=== PATIENT | female | born 1990 | race Caucasian/White ===

== ENCOUNTER → 2017-06-30 | Outpatient (CLI) | payer OTHER | END | disposition home or self-care (01) | LOC: C.LABSPEC 12:13 | PROVIDERS: ATTEND Obstetrics & Gynecology | DX: Z34.01 Encounter for supervision of normal first pregnancy, first trimester (principal) ==

== ENCOUNTER → 2017-07-03 | Outpatient (CLI) | payer OTHER ==
[2017-07-03 12:06] LABS: BASO % 0.3 %; BASO ABS # 0.02 K/uL (0-0.2); EOS % 0.7 %; EOS ABS # 0.05 K/uL (0-0.5); HEMATOCRIT 37.4 % (37-47); HEMOGLOBIN 12.6 g/dL (12.0-16.0); IG# 0.02 K/uL (0.00-0.02); LYMPH % 20.4 %; LYMPH ABS # 1.39 K/uL (1.2-3.4); MEAN CELL VOLUME 79.2 fL (80-100); MEAN CORPUSCULAR HEMOGLOBIN 26.7 pg (25-34); MEAN CORPUSCULAR HGB CONC 33.7 g/dl (32-36); MEAN PLATELET VOLUME 9.7 fL (7.4-10.4); MONO % 6.4 %; MONO ABS # 0.44 K/uL (0.11-0.59); NEUT % 71.9 %; NEUT ABS # 4.91 K/uL (1.4-6.5); PLATELET COUNT 316 K/uL (130-400); RED CELL DISTRIBUTION WIDTH CV 13.8 % (11.5-14.5); RED CELL DISTRIBUTION WIDTH SD 39.1 fL (36.4-46.3); WHITE BLOOD COUNT 6.83 K/uL (4.8-10.8)
== END | disposition home or self-care (01) ==
LOC: C.LAB1850 10:31
PROVIDERS: ATTEND Obstetrics & Gynecology
DX: Z34.01 Encounter for supervision of normal first pregnancy, first trimester (principal); Z3A.00 Weeks of gestation of pregnancy not specified

== ENCOUNTER → 2017-08-14 | Outpatient (CLI) | payer OTHER | END | disposition home or self-care (01) | LOC: C.LAB1850 16:48 | PROVIDERS: ATTEND Obstetrics & Gynecology | DX: Z34.02 Encounter for supervision of normal first pregnancy, second trimester (principal); Z3A.00 Weeks of gestation of pregnancy not specified ==

== ENCOUNTER → 2017-12-21 | Outpatient (CLI) | payer OTHER | END | disposition home or self-care (01) | LOC: C.LAB1850 11:12 | PROVIDERS: ATTEND Obstetrics & Gynecology | DX: O12.10 Gestational proteinuria, unspecified trimester (principal) ==

== ENCOUNTER 2021-05-25 06:53 | Inpatient (IN) ==
[2021-05-25] MEDS ORDERED: OXYTOCIN 30 UNITS/500 ML BAG IV PRN ×2 (07:06→12:32)
--- NOTE | 2021-05-25 07:14 | History & Physical Report ---
Date of Service May 25, 2021 Assessment & Plan (1) Supervision of normal intrauterine in multigravida: Plan: Admit to L&D, labs, EFM/toco, IV, COVID swab per protocol. She would like an epidural. History of Present Illness Chief Complaint: contractions Primary Care Provider: NO PCP 30yo @ 39 2/ presents with regular contractions, every few minutes. No leaking fluid. Small amount of vaginal bleeding. + movement. with GDMA1, obesity. Allergies Allergy/AdvReac Type Severity Reaction Status Date / Time No Known Allergies Allergy Verified 05/22/21 14:02 Home Medications Medication Instructions Recorded Confirmed Type prenat.vits,mukund,[id number] 1 tab PO DAILY 02/04/18 05/25/21 History ( Vitamin) acetone (urine) test (Ketone Urine #50 ea 03/11/21 05/22/21 Rx Test) blood sugar diagnostic (OneTouch #150 ea 03/11/21 05/22/21 Rx Verio test strips) blood-glucose meter (OneTouch #1 ea 03/11/21 05/22/21 Rx Verio Reflect Meter) lancets 33 gauge (OneTouch Delica #150 ea 03/11/21 05/22/21 Rx Plus Lancet) Patient History Surgical History History of dilatation and curettage for endometreosis Family History Other Diabetes Hypertension Social History Smoking Status: Former smoker Second Hand Exposure: No; Hx Alcohol Use: No Hx Substance Use: No Preferred Language: Kosovan Communication Ability: Effective Beliefs That Will Affect Care: None marital status: marital status details: Lang (30) [phone] Current Living Situation: Spouse Current Living Situation Comment: lives with spouse and daughter, no pets. 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 No s/s chorio or abruption. Skin: no rashes, warm and dry Psychiatric: A+Ox3, euthymic affect Monitoring External Monitor +FHT SVE 4-5/90/-1 Coding Level of Care Code None Diagnoses Supervision of normal intrauterine in multigravida Z34.80
[2021-05-25 07:25] LABS: Hematocrit (blood only) 34.9 % (37-47); Mean Corpuscular Hemoglobin 23.5 pg (25-34); Mean Corpuscular Hgb Conc 31.5 g/dL (32-36); Mean Corpuscular Volume 74.6 fL (80-100); Mean Platelet Volume 10.5 fL (7.4-10.4); Platelet Count 369 K/uL (130-400); RDW Coefficient of Variation 15.5 % (11.5-14.5); RDW Standard Deviation 41.7 fL (36.4-46.3); Red Blood Count 4.68 M/uL (4.2-5.4); White Blood Count 8.45 K/uL (4.8-10.8)
[2021-05-25] MEDS: LACTATED RINGER'S 1,000 ML IV PRN ×2 (07:42→08:45)
[2021-05-25] MEDS ORDERED: SODIUM CHLORIDE 0.9% INJ 10 ML VIAL ONE (08:07)
[2021-05-25] MEDS ORDERED: BUPIVACAINE 0.25% 30 ML VIAL ONE (08:07)
[2021-05-25] MEDS ORDERED: ePHEDrine sulfate 50 MG/ML AMP ONE (08:07)
[2021-05-25] MEDS ORDERED: fentaNYL citrate 100 MCG/2 ML VIAL ONE (08:07)
[2021-05-25] MEDS ORDERED: fentaNYL 2MCG/ML ROPIVACAINE 1.25MG/ML 100 ML BAG EPI ONE (08:08)
--- NOTE | 2021-05-25 08:36 | Anesthesiology Consultation ---
Date of Service May 25, 2021 Assessment & Plan (1) Encounter for pre-operative examination: Chart Review Chart Review: Acceptable Risk for Labor Epidural History Height/Weight Height: 5 ft 4 in Weight: 120.5 kg Allergies Allergy/AdvReac Type Severity Reaction Status Date / Time No Known Allergies Allergy Verified 05/22/21 14:02 Medications Home Medications Medication Instructions Recorded Confirmed Last Taken prenat.vits,mukund,[id number] 1 tab PO DAILY 02/04/18 05/25/21 02/02/18 ( Vitamin) 0800 acetone (urine) test (Ketone Urine #50 ea 03/11/21 05/25/21 Unknown Test) blood sugar diagnostic (OneTouch #150 ea 03/11/21 05/25/21 Unknown Verio test strips) blood-glucose meter (OneTouch #1 ea 03/11/21 05/25/21 Unknown Verio Reflect Meter) lancets 33 gauge (OneTouch Delica #150 ea 03/11/21 05/25/21 Unknown Plus Lancet) Past Medical History Medical History (Updated 05/25/21 @ 08:35 by Andreas Dewey MD) No significant past medical history Past Family History Family History Other Diabetes Hypertension Past Surgical History Surgical History History of dilatation and curettage for endometreosis Social History Smoking Status: Never smoker Hx Alcohol Use: No Hx Substance Use: No substance use type: does not use Physical Exam Vital Signs Last Vital Signs Temp 36.6 C 05/25/21 07:10 Pulse 77 05/25/21 07:27 Resp 18 05/25/21 07:10 BP 123/83 05/25/21 07:27 Testing Laboratory Results 05/25/21 07:12
[2021-05-25] MEDS ORDERED: ONDANSETRON INJ 2 MG/ML 2 ML VIAL IV PRN (09:00)
[2021-05-25] MEDS ORDERED: NALOXONE HCL 1 MG in SODIUM CHLORIDE 0.9% 1000ML 1,000 ML IV PRN (09:00)
[2021-05-25] MEDS ORDERED: ePHEDrine sulfate 50 MG/ML AMP IV PRN (09:00)
[2021-05-25] MEDS ORDERED: fentaNYL 2MCG/ML ROPIVACAINE 1.25MG/ML 100 ML BAG EPI PRN (09:00)
[2021-05-25] MEDS ORDERED: NALOXONE HCL 0.4 MG/1 ML VIAL/CARP IV PRN (09:00)
[2021-05-25] MEDS ORDERED: SUPERCREAM 0.870% 15 GM JAR EXT PRN (12:32)
[2021-05-25] MEDS ORDERED: DIPHTHERIA/TETANUS/PERTUSSIS 0.5 ML SYR/VIAL IM ONE (12:32)
[2021-05-25] MEDS ORDERED: ACETAMINOPHEN 325 MG TAB PO PRN (12:32)
[2021-05-25] MEDS ORDERED: bisacodyL 10 MG SUPP PR PRN (12:32)
[2021-05-25] MEDS ORDERED: BENZOCAINE 20% AER SPR 82.5 GM CAN EXT PRN (12:32)
[2021-05-25] MEDS ORDERED: HYDROCORTISONE ACETATE 25 MG SUPP PR PRN (12:32)
[2021-05-25] MEDS ORDERED: oxyCODONE/ACETAMINOPHEN 5mg/325mg TAB PO PRN (12:32)
--- NOTE | 2021-05-25 12:39 | Delivery Summary ---
Vaginal Delivery Summary Date of Service May 25, 2021 Vaginal Delivery Summary and 1st Degree LAC Patient is a 30-year-old 2 para 1-0-0-1 white female EDC of 05/24/2021 who presented in active labor. She received effective epidural analgesia and progressed to full dilation and +1 station. Membranes were ruptured for small amount of clear fluid. She had the urge to push and through 2 contractions, delivered a viable male in vertex presentation. Rest the delivered easily and was placed on the mother's abdomen for further attention and drying. The was vigorous and moving all 4 limbs after stimulation. The placenta was expressed intact with a three-vessel cord after obtaining cord blood sample. A first-degree perineal laceration was repaired with 3-0 chromic in the usual fashion. Estimated blood loss 200 cc. bleeding was co ntrolled with dilute Pitocin and fundal massage. Mother and were doing well after delivery. [facility] [place] Vaginal Delivery Charge Delivery Type Details: and 1st Degree LAC
--- NOTE | 2021-05-25 13:57 | Anesthesia Procedure Note ---
Date of Service May 25, 2021 Anesthesia Post Epidural Note Vital Signs Vital Signs: Temp Pulse Resp BP Pulse Ox 36.8 C 83 20 131/85 99 05/25/21 11:00 05/25/21 13:22 05/25/21 13:45 05/25/21 13:22 05/25/21 12:08 Notes Mental Status: alert / awake / arousable and participated in evaluation Nausea / Vomiting: adequately controlled Pain: adequately controlled Airway Patency, RR, SpO2: stable & adequate BP & HR: stable & adequate Hydration State: stable & adequate Neuraxial Anesthesia: was administered and sensory block is resolving Anesthetic Complications: no major complications apparent Epidural: Removed without complications and With tip intact
[2021-05-25] MEDS: IBUPROFEN 600 MG TAB PO PRN ×2 (17:19→23:31)
[2021-05-25] MEDS: DOCUSATE SODIUM 100 MG CAP PO SCH (20:12)
[2021-05-26] MEDS: IBUPROFEN 600 MG TAB PO PRN ×2 (06:01→12:29)
[2021-05-26 06:36] LABS: Hematocrit (blood only) 30.3 % (37-47); Hemoglobin 9.3 g/dL (12.0-16.0); Mean Corpuscular Hemoglobin 23.2 pg (25-34); Mean Corpuscular Hgb Conc 30.7 g/dL (32-36); Mean Corpuscular Volume 75.6 fL (80-100); Mean Platelet Volume 10.1 fL (7.4-10.4); Platelet Count 294 K/uL (130-400); RDW Coefficient of Variation 15.6 % (11.5-14.5); Red Blood Count 4.01 M/uL (4.2-5.4); White Blood Count 7.36 K/uL (4.8-10.8)
[2021-05-26] MEDS ORDERED: PRENATAL VITAMIN 1 TAB PO SCH (08:00)
[2021-05-26] MEDS: DOCUSATE SODIUM 100 MG CAP PO SCH (08:32)
--- NOTE | 2021-05-26 08:45 | Obstetrical Progress Note ---
Date of Service May 26, 2021 Assessment & Plan (1) Encounter for care and examination after delivery: satisfactory course wishes to be discharged later today f/u in 6 weeks Subjective Ambulation: ambulating normally Voiding: no voiding problems Passing Gas:: Yes Diet Tolerance:: regular diet Lochia:: Small Feeding Type:: breast feeding Review of Systems All systems reviewed & are unremarkable except as noted in HPI & below Physical Exam Constitutional WD/WN, vitals as above Psychiatric A+Ox3, euthymic affect Genitourinary OB Exam Abdomen: + fundal height (at U) Fundus: + firm; not tender Results & Data ([facility]) Vital Signs (Past 12 Hours) Vital Signs Temp Pulse Resp BP Pulse Ox 05/26/21 08:36 97.5 F L 82 20 122/76 98 05/26/21 03:05 98.1 F 77 16 120/83 96 05/25/21 23:45 97.9 F 76 16 120/79 96
[2021-05-26] MEDS ORDERED: bisacodyL 5 MG TABEC PO SCH (20:00)
== END 2021-05-26 14:10 | disposition home or self-care (01) | DRG 807 ==
LOC: OPB 06:53 → 4S1 07:00 → 4S2 15:20
DX: O24.420 Gestational diabetes mellitus in childbirth, diet controlled; O70.0 First degree perineal laceration during delivery; Z87.891 Personal history of nicotine dependence; O99.214 Obesity complicating childbirth; Z3A.40 40 weeks gestation of pregnancy; Z37.0 Single live birth; E66.9 Obesity, unspecified; Z83.3 Family history of diabetes mellitus